=== PATIENT | female | born 1970 | race African-American/Black ===

== ENCOUNTER 2022-06-07 05:39 | Emergency (ER) | payer BC, SELFPAY ==
--- NOTE | ~2022-06-07 | CT_ITS ---
EXAMINATION: CT facial bones w con DATE: 06/07/2022 07:01 INDICATION: Right-sided facial swelling TECHNIQUE: High resolution computed tomography (CT) of the maxillofacial bones was performed without intravenous contrast. Additional sagittal and coronal reconstructions were performed. Automated expos ure control and iterative reconstruction technique were employed. The dose-length product was 413.77 mGy-cm. COMPARISON: None FINDINGS: Soft tissue swelling and edema surrounding a region of phlegmonous change along the upper lip and ext ending to the right side of the nasal labial fold. No drainable abscess. No maxillofacial fractures. Orbits are normal. Mild mucosal thickening in the right sphenoid and bilateral ethmoid and maxillary sinuses. There are some bubbly mucus in the right sphenoid sinus consistent with acute sinusitis. [place] air cells and middle ear cavities are clear. The mildly prominent but still normal-sized bilater al facial and cervical lymph nodes which are likely reactive. IMPRESSION: 1. Soft tissue swelling surrounding a region of phlegmonous change without discrete abscess centered at the upper lip and right sides of the nasal labial fold. 2. Bubbly mucus in the right sphenoid sinus consistent with acute sinusitis. Reviewed, dictated and finalized at location A. IMPRESSION: 1. Soft tissue swelling surrounding a region of phlegmonous change without disc rete abscess centered at the upper lip and right sides of the nasal labial fold . 2. Bubbly mucus in the right sphenoid sinus consistent with acute sinusitis.
[2022-06-07 05:51] VITALS: BP 183/110; PULSE 100; RESP 20; TEMP 36.6; O2SAT 96
--- NOTE | 2022-06-07 05:56 | ED.GENADULT ---
HPI - General Adult General Chief complaint: Dental/Oral <Rusty Wood MD - Last Filed: 06/13/22 07:05> Stated complaint: dental pain <Rusty Wood MD - Last Filed: 06/13/22 07:05> Time Seen by Provider: 06/07/22 05:41 <Rusty Wood MD - Last Filed: 06/13/22 07:05> History of Present Illness HPI narrative: 52-year-old female presented to the emergency department for evaluation of right-sided facial swelling. Patient states that on 06/05 she had some teeth filled. Patient states last night that she did have some minor swelling but that when she woke up this morning she had more significant swelling. Patient no swelling of right face. Patient denies any change in her voice any swelling of her tongue. Patient has not been antibiotics but has been taking prednisone. <Rusty Wood MD - Last Filed: 06/13/22 07:05> Related Data Allergies/adverse reactions: Allergies Allergy/AdvReac Type Severity Reaction Status Date / Time No Known Allergies Allergy Verified 06/07/22 05:50 <Rusty Wood MD - Last Filed: 06/13/22 07:05> Review of Systems Review of Systems: CONSTITUTIONAL: Denies fever, chills, or sweats. EYES: Denies visual changes, redness, or discharge. ENT: Denies rhinorrhea, congestion, sore throat, or otalgia. Right-sided facial swelling CARDIOVASCULAR: Denies chest pain, palpitations, or edema. RESPIRATORY: Denies cough or dyspnea. GASTROINTESTINAL: Denies abdominal pain, nausea, vomiting, or diarrhea. GENITOURINARY: Denies dysuria or hematuria. SKIN: Denies rash or itching. MUSCULOSKELETAL: Denies back pain, joint pain, or myalgia. NEUROLOGIC: Denies headache, numbness, or weakness. <Rusty Wood MD - Last Filed: 06/13/22 07:05> Exam Narrative: APPEARANCE: Well appearing, no pain, no distress, well-nourished. HEAD: normocephalic, atraumatic. Facial: Right-sided facial swelling involving lip. No submandibular swelling. No swelling of tongue EYES: PERRLA/EOMI, conjunctivae clear. NOSE: Normal no drainage EARS:TMS clear with good light reflex. THROAT: Pharynx clear, no exudate. NECK: Supple. No adenopathy, no masses. RESPIRATORY: Airway patent, respirations nonlabored. Clear to auscultation bilaterally, no rales, rhonchi, wheezing. CARDIOVASCULAR: Regular rate and rhythm without murmurs rubs or gallops. ABDOMINAL: Soft, nontender, nondistended, normal bowel sounds MUSCULOSKELETAL: Moves all extremities. Strength/ROM intact, No edema, No calf tenderness. NEURO: Alert. Cranial nerves II through XII intact. Grossly intact SKIN: Warm, dry. Normal Color <Rusty Wood MD - Last Filed: 06/13/22 07:05> Course Course Emergency Course: CT facial bones with contrast was ordered to evaluate for abscess. Patient was treated with IV clindamycin. Patient care was signed to Dr. Kate <Rusty Wood MD - Last Filed: 06/13/22 07:05> Vital Signs Vital signs: Vital Signs Temperature 97.9 F 06/07/22 05:51 Pulse Rate 100 06/07/22 05:51 Respiratory Rate 20 06/07/22 05:51 Blood Pressure 183/110 H 06/07/22 05:51 Pulse Oximetry 96 06/07/22 05:51 Temperature 97.9 F 06/07/22 05:51 Pulse Rate 84 06/07/22 11:00 Respiratory Rate 20 06/07/22 11:00 Blood Pressure 103/88 06/07/22 11:00 Pulse Oximetry 100 06/07/22 11:00 <Rusty Wood MD - Last Filed: 06/13/22 07:05> Vital Signs Temperature 97.9 F 06/07/22 05:51 Pulse Rate 100 06/07/22 05:51 Respiratory Rate 20 06/07/22 05:51 Blood Pressure 183/110 H 06/07/22 05:51 Pulse Oximetry 96 06/07/22 05:51 Temperature 97.9 F 06/07/22 05:51 Pulse Rate 84 06/07/22 11:00 Respiratory Rate 20 06/07/22 11:00 Blood Pressure 103/88 06/07/22 11:00 Pulse Oximetry 100 06/07/22 11:00 <Nicolas Kate DO - Last Filed: 06/07/22 12:32> Medical Decision Making MDM Narrative Medical decision making narrative: IMPRESSION:
[2022-06-07] MEDS: CLINDAMYCIN 900 MG/D5W 50 ML 900 MG/50 ML PIGGYBACK 50 MG IVPB (06:14)
[2022-06-07 06:18] LABS: Basophils Percent Auto 0.1 % (0.2-1.2); Eosinophils Percent Auto 0.1 % (0-4.4); Hematocrit 36.2 % (37.0-47.0); Hemoglobin 11.3 g/dL (12.0-15.0); Immature Granulocyte Absolute 0.04 K/mm3 (0.00-0.031); Immature Granulocyte Percent A 0.4 % (0-0.5); Lymphocytes Absolute Auto 2.44 K/mm3 (0.9-3.2); Lymphocytes Percent Auto 25.8 % (18.3-44.2); Mean Corpuscular HGB Conc 31.2 g/dl (32-36); Mean Corpuscular Volume 86.6 fl (80-100); Mean Platelet Volume 10.3 fl (7.4-10.4); Monocytes Absolute Auto 0.8 K/mm3 (0.1-0.6); Monocytes Percent Auto 8.5 % (2.6-8.5); Neutrophils Absolute Auto 6.2 K/mm3 (1.3-6.7); Neutrophils Percent Auto 65.1 % (45.5-73.1); Platelet Count Result 230 k/mm3 (150-375); Red Blood Count 4.18 M/mm3 (4.2-5.4); Red Cell Distribution Width 13.3 % (11.5-14.5); White Blood Count 9.5 K/mm3 (4.5-10.0)
[2022-06-07 06:26] VITALS: BP 164/95; PULSE 88; RESP 20; O2SAT 100
[2022-06-07 06:34] LABS: Alanine Aminotransferase 17 U/L (6-35); Albumin Level 4.2 g/dL (3.5-5.1); Alkaline Phosphatase 81 U/L (38-126); Anion Gap 7 mmol/L (8-16); Aspartate Amino Transferase 25 U/L (14-36); Bilirubin,Total 0.6 mg/dL (0.2-1.3); Blood Urea Nitrogen 17 mg/dL (7-17); Carbon Dioxide 29 mmol/L (22-30); Chloride 105 mmol/L (98-107); Estimated CRCL calculation 106 ml/min; Estimated Glomerular Filt Rate > 60; Glucose 114 mg/dL (65-110); Potassium 3.8 mmol/L (3.4-5.0); Sodium 141 mmol/L (137-145)
--- NOTE | 2022-06-07 06:59 | PC.NURSE ---
Report given to Aleida SOTELO
[2022-06-07] MEDS: HYDROcodone/acetaminophen (*CRX) 5-325 MG TABLET 1 TAB PO (08:26)
[2022-06-07 08:30] VITALS: BP 165/96; PULSE 100; RESP 20; O2SAT 100
[2022-06-07] MEDS: DEXAMETHASONE SOD PHOS INJ 4 MG/ML VIAL 12 MG IV PUSH (08:53)
[2022-06-07 11:00] VITALS: BP 103/88; PULSE 84; RESP 20; O2SAT 100
== END 2022-06-07 12:54 | disposition home or self-care (01) ==
PROVIDERS: Emergency Medicine; Emergency Provider Emergency Medicine
DX: R22.0 Localized swelling, mass and lump, head (principal); Z98.811 Dental restoration status
CPT/HCPCS: 36415; 70487; 80053; 85025; 96365; 96375; 99284; A9270; J1100; Q9967

== ENCOUNTER 2025-01-08 22:55 | Emergency (ER) | payer BC, SELFPAY ==
[2025-01-08] VITALS (8 sets, daily range): BP systolic 153–160; BP diastolic 88–102; PULSE 91–95; RESP 12–16; TEMP 36.9; O2SAT 100
--- NOTE | ~2025-01-08 | CT_ITS ---
EXAMINATION: CT abdomen pelvis wo con DATE: 01/09/2025 03:04 INDICATION: Right flank pain TECHNIQUE: Computed tomography (CT) of the abdomen and pelvis was performed without intravenous contr ast. The dose-length product was 1571.76 mGy-cm. Automated exposure control and iterative reconstruct ion technique were employed. COMPARISON: None. FINDINGS: Lung bases are unremarkable. Heart size is normal. No significant pleural or pericardial ef fusion. The liver, spleen, pancreas, adrenal glands and kidneys are unremarkable. Gallbladder is pres ent. No significant vascular abnormality. No lymphadenopathy. No hydronephrosis. No renal/ureteral st ones identified. Nonobstructive bowel gas pattern. Normal appendix. No free air or free fluid. No acu te osseous abnormality. No lymphadenopathy. IMPRESSION: 1. No acute abdominal abnormality. Reviewed, dictated and finalized at location A.
--- OUTSIDE RECORDS SUMMARY | 2025-01-08 22:57 | XMS_ITS | Clinical Summary ---
Author Organization [facility] Address [address] [place] [id number] Care Team Providers Care Weight Caller Name Role Phone Ashley Clayton NP Primary Care Provider [phone] Allergies No known active allergies Medications promethazine-DM (PROMETHAZINE-D M) 1.25-3 mg/mL syrupIndication s:Viral respiratory infection Take 5 mL by mouth 4 (four) times a day as needed for cough (And runny nose) Collaborating physician Abdelrahman Barber MD 118 mL 4 Active acetaminophen (TYLENOL) 325 mg tabletIndicatio ns:Viral respiratory infection,Tonsi llitis Take 2 tablets (650 mg total) by mouth every 6 (six) hours as needed for pain or fever Collaborating physician Abdelrahman Barber MD 30 tablet 4 Active ibuprofen (ADVIL,MOTRIN) 600 mg tabletIndicatio ns:Viral respiratory infection,Tonsi llitis Take 1 tablet (600 mg total) by mouth every 8 (eight) hours as needed for pain Collaborating physician Abdelrahman Barber MD 20 tablet 4 Active Active Problems Problem Noted Date Diagnosed Date Viral respiratory infection 06/08/2024 Tonsillitis 06/08/2024 Social History Tobacco Use Types Packs/Day Years Used Date Smoking Tobacco: Never Tobacco Cessation:Counseling Given: Not Answered Personal Safety Answer Date Recorded Have you ever been in or are you currently in a harmful physical or emotional relationship or is someone making you feel afraid or unsafe? 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 Gender Identity Not on file Sexual Orientation Not on file Obstetrics History Last Filed Vital Signs Vital Sign Reading Time Taken Comments Blood Pressure 169/95 06/08/2024 9:37 PM CDT Pulse 85 06/08/2024 9:37 PM CDT Temperature 36.7 C (98.1 F) 06/08/2024 7:44 PM CDT Respiratory Rate 20 06/08/2024 9:37 PM CDT Oxygen Saturation 100% 06/08/2024 7:44 PM CDT Inhaled Oxygen Concentration - - Weight 99.8 kg (220 lb) 06/08/2024 7:44 PM CDT Height 167.6 cm (5' 6 ) 06/08/2024 7:44 PM CDT Body Mass Index 35.51 06/08/2024 7:44 PM CDT Plan of Treatment Health Maintenance Due Date Last Done Comments Breast Cancer Screening-Mammogram 1972 Cervical Cancer Screening 1972 Colon Cancer Screening-Colonoscopy 1972 Depression Screening 1972 Hepatitis C Screening 1972 Hepatitis B Screening 01/06/1990 Regular Well Visit/Exam 18-64 01/06/1990 Zoster Vaccine (1 of 2) 01/06/2022 Covid-19 Vaccine (4 - 2023-2 5 season) 2024 09/03/2021, 10/31/2020, 10/10/2020 Influenza Vaccine (#1) 2024 DTaP/Tdap/Td Vaccine (3 - Td or Tdap) 03/26/2026 03/26/2016, 03/26/2016 Pneumococcal vaccine <65 Aged Out 11/11/2022 No longer eligible based on patient's age to complete this topic Insurance [employer] [place] [address] [facility] Care Teams Weight Caller Relationship Specialty Start Date End Date Ashley Clayton NP [address] [place] [address] PCP - General 03/08/20
--- OUTSIDE RECORDS SUMMARY | 2025-01-08 22:57 | XMS_ITS | Referral Summary ---
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
--- OUTSIDE RECORDS SUMMARY | 2025-01-08 22:58 | XMS_ITS | Encounter Summary ---
Author Organization [facility] Address [address] [place] [address] Care Team Providers Care Remarketing Manager Name Role Phone Unavailable Primary Care Provider Unavailabl e Prior Encounters Date Type Department Care Team Description 09/20/2019 Converted CPS Chart Documents [facility] [address] [place] [address] <No scans attached> 09/20/2019 Converted 13x Documents [facility] [address] [place] [address] <No scans attached> Plan of Treatment Not on file Procedures Procedure Name Priority Date/Time Associated Diagnosis Comments LR PERIODONTAL SCALING AND ROOT PLANING - FOUR OR MORE TEETH PER QUADRANT Routine 06/14/2020 2:00 AM CDT ORAL HYGIENE INSTRUCTIONS Routine 2019 2:00 AM CDT LR SHANEKA DECON/QD Routine 06/14/2020 2:00 AM CDT LR ANTIBACT IRR/QUAD Routine 06/14/2020 2:00 AM CDT TOPICAL APPLICATION OF FLUORIDE VARNISH Routine 06/14/2020 2:00 AM CDT UL PERIODONTAL SCALING AND ROOT PLANING - FOUR OR MORE TEETH PER QUADRANT Routine 06/07/2020 2:00 AM CDT LL PERIODONTAL SCALING AND ROOT PLANING - FOUR OR MORE TEETH PER QUADRANT Routine 06/07/2020 2:00 AM CDT ORAL HYGIENE INSTRUCTIONS Routine 2019 2:00 AM CDT LL SHANEKA DECON/QD Routine 06/07/2020 2:00 AM CDT UL SHANEKA DECON/QD Routine 06/07/2020 2:00 AM CDT ORAL-B ESSENTIAL KIT Routine 06/07/2020 2:00 AM CDT UL ANTIBACT IRR/QUAD Routine 06/07/2020 2:00 AM CDT LL ANTIBACT IRR/QUAD Routine 06/07/2020 2:00 AM CDT UR PERIODONTAL SCALING AND ROOT PLANING - FOUR OR MORE TEETH PER QUADRANT Routine 06/05/2020 2:00 AM CDT ORAL HYGIENE INSTRUCTIONS Routine 2019 2:00 AM CDT UR SHANEKA DECON/QD Routine 06/05/2020 2:00 AM CDT UR ANTIBACT IRR/QUAD Routine 06/05/2020 2:00 AM CDT 30 O AMALGAM 1 SURFACE Routine 0 2:00 AM CDT 29 O AMALGAM 1 SURFACE Routine 0 2:00 AM CDT 19 O AMALGAM 1 SURFACE Routine 0 2:00 AM CDT 3 O AMALGAM 1 SURFACE Routine 05/24/2020 2:00 AM CDT COMPREHENSIVE ORAL EVALUATION - NEW OR ESTABLISHED PATIENT Routine 05/24/2020 2:00 AM CDT INTRAORAL - COMPREHENSIVE SERIES OF RADIOGRAPHIC IMAGES Routine 05/24/2020 2:00 AM CDT INTRAORAL PHOTO Routine 05/24/2020 2:00 AM CDT INTRAORAL PHOTO Routine 05/24/2020 2:00 AM CDT INTRAORAL PHOTO Routine 05/24/2020 2:00 AM CDT INTRAORAL PHOTO Routine 05/24/2020 2:00 AM CDT 31 EXTRACTION, ERUPTED TOOTH OR EXPOSED ROOT (ELEVATION AND/OR FORCEPS REMOVAL) Routine 05/10/2020 2:00 AM CDT 31 LIMITED ORAL EVALUATION - PROBLEM FOCUSED Routine 05/03/2020 2:00 AM CDT PANORAMIC RADIOGRAPHIC IMAGE Routine 05/03/2020 2:00 AM CDT SINGLE X-RAY Routine 05/03/2020 2:00 AM CDT Visit Diagnoses Not on file
--- OUTSIDE RECORDS SUMMARY | 2025-01-08 22:58 | XMS_ITS | Clinical Summary ---
Author Organization [facility] [place] [address] [place] [address] Care Team Providers Care Tnt Powder Worker Name Role Phone Unavailable Primary Care Provider Unavailabl e Social History Tobacco Use Types Packs/Day Years Used Date Smoking Tobacco: Never Assessed Comments Unknown Sex and Gender Information Value Date Recorded Sex Assigned at Not on file Legal Sex Female 9:07 PM PDT Gender Identity Not on file Sexual Orientation Not on file Plan of Treatment Health Maintenance Due Date Last Done Comments Meningococcal B Vaccine Aged Out No l onger eligible based on patient's age to complete this topic
--- OUTSIDE RECORDS SUMMARY | 2025-01-08 22:58 | XMS_ITS | CONTINUITY OF CARE DOCUMENT ---
Author Name leah lynn Address Unknown Organization [facility] Address [address] [place] [address] Phone [phone] Care Team Providers Care Design Maker Name Role Phone Andrae Pope MD Unavailable Andrae Pope MD Unavailable INSURANCE PROVIDERS Payer name Policy type / Coverage type [employer] party ID [id number]
--- OUTSIDE RECORDS SUMMARY | 2025-01-08 22:58 | XMS_ITS | Data Portability ---
Author Organization BRADY Billie PINTO Address [address] [place] [address] Care Team Providers Care Operating Room Surgical Technologist Name Role Phone STEPHON VALDIVIA Primary Care Provider Assessment Encounter Date Assessment Date Assessment LastModified by Organization Details LastModified Time 01/14/2024 01/14/2024 Pt presents as returning pt. Routine exam, screenings and education completed: tmond Not available 01/14/2024 17:17:49 01/28/2024 01/28/2024 Office visit for for advised brief f/u in the management of: HTN tmond Not available 01/28/2024 13:50:40 06/14/2024 06/14/2024 Pt presents as returning pt. Routine exam, screenings and education completed: [email or web address] Not available 06/14/2024 14:46:04 Plan of Treatment Reminders Order Date Submit Date Provider Last Modified By Organization Details Last Modified Time Details Appointments None recorded. Lab PPD (purified protein derivative ), skin test 2023 024 LINDA In-Office Order, Internal Use Only DO Not Attach Compendium DO Not Attach Compendium, Do Not Delete/merge, [id number] 13:25:59 HbA1c (hemoglobi n A1c), blood 2023 024 LINDA [facility], [facility] [address], [address], [place], [address], 4 11:12:47 lipid panel, serum 2023 024 LINDA [facility], [facility], [address], [place], [address], 4 11:12:44 vitamin D, 25-hydroxy , total, serum 2023 024 LINDA [facility], [address] [facility], [address], [place], [address], 4 11:12:49 microalbum in/creatin ine, mass ratio, urine 2023 024 [facility], [address] [facility], [address], [place], [address], 4 16:10:05 BMP, serum or plasma 2023 024 [facility], [address] [place], [place] [address] Cale, [address], [place], [address], 4 11:12:45 CBC 2023 024 [facility], [address] [facility], [address], [place], [address], 4 11:12:48 noninvasiv e colorectal cancer DNA + occult blood screening, QL, stool 2023 024 [facility] (Cologuard Orders Only), [address], [address], [place], [address], 4 08:31:14 Referral None recorded. Procedures colonoscop y procedure (PROC) 2022 023 puja Christy [facility] (Surgery Sched), [address] [place], [address], 3 09:38:41 Surgeries None recorded. Imaging MAMMO, screening, digital, bilateral 2023 024 [email or web address] [facility] (Rad), [address] [place], [address], 4 17:07:21 MAMMO, screening, digital, bilateral 2023 geo [facility] Patient Access Centralized Scheduling, Centralized Scheduling, [address] [facility], [place], [address], 4 09:41:33 Medication Orders Vitamin D3 50 mcg (2,000 unit) capsule 2023 024 [facility], [address] [place], [address], 4 15:08:26 lisinopril 20 mg-hydroch lorothiazi de 25 mg tablet 2023 [facility], [address] [place], [address], 4 15:07:30 aspirin 81 mg tablet,del ayed release 2023 024 [facility], [facility] [place], [address], 4 15:07:32 Tubersol 5 tub. unit/0.1 mL intraderma l injection solution 2023 geo Not available 4 12:14:56 silver sulfadiazi ne 1 % topical cream 2023 [facility], [address] [place], [address], 4 14:47:18 lisinopril 20 mg-hydroch lorothiazi de 25 mg tablet 2023 [facility], [address] [place], [address], 4 16:21:27 aspirin 81 mg tablet,del ayed release 2023 024 [facility], [address] [place], [address], 4 16:21:25 Miralax 17 gram/dose oral powder 2022 024 [facility], [address] [place], [address], 4 15:15:55 Dulcolax (bisacodyl ) 5 mg tablet,del ayed release 2022 024 [facility], [address] [place], [address], 4 15:15:48 Patient TargetsNo targets recorded. Patient Instructions Encounter Date Encounter Id Patient Instructions Last Modified By Organization Details Last Modified Time 01/14/2024 [id number] prediabetes: car e instructions tmond Not available 01/14/2024 17:18:01 henriquez: care instructions tmond Not available 01/14/2024 17:18:01 body mass index: care instructions tmond Not available 01/14/2024 17:18:01 A healthy lifestyle: care instructions tmond Not available 01/14/2024 17:18:01 -Always present to ER or Urgent Care with any progression of/alarming symptoms, significant changes in symptoms that are concerning or urgent matters -Pt to avoid a diet high in NA+ as well as no addeded NA+ -Pt to check b/p daily in am and in evening -Patient instructed to call office with changes in condition -Pt advised to continue to check FBG daily as well as post prandial 1-2 hrs after dinner meal, record and bring to f/u visits -Pt educated re heart health TLCs: Eat a variety of foods every day. Good choices include fruits, vegetables, whole grains (like oatmeal), dried beans and peas, nuts and seeds, soy products (like tofu), and fat-free or low-fat dairy products. Replace butter, margarine, and hydrogenated or partially hydrogenated oils with olive and canola oils. (Canola oil margarine without trans fat is fine.) Replace red meat with fish, poultry, and soy protein (like tofu). Limit processed and packaged foods like chips, crackers, and cookies. Bake, broil, or steam foods. Don't wen them. Be physically active. Get at least 30 minutes of exercise on most days of the week. tmond Not available 01/14/2024 16:24:16 -Discussed POC; further managed r/t pending lab values -Pt to follow up with routine f/u visit as discussed -Pt informed of optimum health recommendations: 150 mins of aerobic exercise weekly 7-9 hrs of sleep 7-13 servings of fruit and vegetables each day 1/2 of body weight in oz of water daily Plant based diet tmond Not available 01/14/2024 16:24:33 01/21/2024 [id number] MMR vaccine (measles, mumps, and rubella): what you need to know leif Not available 01/21/2024 18:03:45 MMR vaccine: car e instructions [email or web address] Not available 01/21/2024 18:03:45 A healthy lifestyle: care instructions [email or web address] Not available 01/21/2024 18:02:26 01/28/2024 [id number] -Always present to ER or Urgent Care with any progression of/alarming symptoms, significant changes in symptoms that are concerning or urgent matters -Pt to avoid a diet high in NA+ as well as no addeded NA+ -Pt to check b/p daily in am and in evening, record values and bring readings to f/u appt tmond Not available 01/28/2024 13:51:39 -Discussed POC -Pt to follow up with routine f/u visit as discussed tmond Not available 01/28/2024 13:51:44 06/14/2024 [id number] body mass index: care instructions tmond Not available 06/14/2024 15:07:02 A healthy lifestyle: care instructions tmond Not available 06/14/2024 15:07:02 preventing osteoporosis: care instructions tmond Not available 06/14/2024 15:45:27 -Always present to ER or Urgent Care with any progression of/alarming symptoms, significant changes in symptoms that are concerning or urgent matters -Pt to avoid a diet high in NA+ as well as no addeded NA+ -Pt to check b/p daily in am and in evening -Patient instructed to call office with changes in condition -Pt advised to continue to check FBG daily as well as post prandial 1-2 hrs after dinner meal, record and bring to f/u visits -Pt educated re heart health TLCs: Eat a variety of foods every day. Good choices include fruits, vegetables, whole grains (like oatmeal), dried beans and peas, nuts and seeds, soy products (like tofu), and fat-free or low-fat dairy products. Replace butter, margarine, and hydrogenated or partially hydrogenated oils with olive and canola oils. (Canola oil margarine without trans fat is fine.) Replace red meat with fish, poultry, and soy protein (like tofu). Limit processed and packaged foods like chips, crackers, and cookies. Bake, broil, or steam foods. Don't wen them. Be physically active. Get at least 30 minutes of exercise on most days of the week. tmond Not available 06/14/2024 15:00:39 -Discussed POC; further managed r/t pending lab values -Pt to follow up with routine f/u visit as discussed -Pt informed of optimum health recommendations: 150 mins of aerobic exercise weekly 7-9 hrs of sleep 7-13 servings of fruit and vegetables each day 1/2 of body weight in oz of water daily Plant based diet tmond Not available 06/14/2024 15:00:42 Reason for Referral None Reported. Results Created Date Observation Date Name Description Value Unit Range Abnormal Flag Note LastModifiedBy Organization Detail LastModifiedTime 06/16/20 24 06/16/2024 COLOG UARD cologuard result Cancel led - Duplic ate Order not applic able Not Available [facility] (Cologuard Orders Only) [address], [place], [address], 06/16/2024 08:31:14 03/20/20 23 03/20/2023 HbA1c (hemo globi n A1c), blood HbA1c 5.9 Not Available In-Office Order Internal Use Only DO Not Attach Compendium DO Not Attach Compendium, Do Not Delete/merge, [id number] 03/20/2023 13:34:27 03/20/20 23 03/20/2023 gluco se, finge rstic k, blood Blood Glucose: mg/dl 91 Not Available In-Off ice Order Internal Use Only DO Not Attach Compendium DO Not Attach Compendium, Do Not Delete/merge, [id number] 03/20/2023 13:34:40 01/14/20 24 01/15/2024 LIPID PANEL cholesterol, total 201 mg/dL 100-19 9 above high normal Not Available [facility] ([facility]) [address] [place], [address], 01/15/2024 11:12:44 01/14/20 24 01/15/2024 LIPID PANEL triglyceride s 117 mg/dL 0-149 Not Available [facility] ([facility]) [address] [place], [address], 01/15/2024 11:12:44 01/14/20 24 01/15/2024 LIPID PANEL HDL cholesterol 58 mg/dL >39 Not Available [facility] ([facility]) [address] [place], [address], 01/15/2024 11:12:44 01/14/20 24 01/15/2024 LIPID PANEL VLDL cholesterol iva 21 mg/dL 5-40 Not Available [facility] ([facility]) [address] [place], [address], 01/15/2024 11:12:44 01/14/20 24 01/15/2024 LIPID PANEL LDL chol calc ([facility]) 122 mg/dL 0-99 above high normal Not Available [facility] ([facility]) [address] [place], [address], 01/15/2024 11:12:44 01/14/20 24 01/15/2024 BASIC METAB OLIC PANEL (8) glucose 106 mg/dL 70-99 above high normal Not Available [facility] ([facility]) [address] [place], [address], 01/15/2024 11:12:45 01/14/20 24 01/15/2024 BASIC METAB OLIC PANEL (8) BUN 12 mg/dL 6-24 Not Available [facility] ([facility]) [address], [place], [address], 01/15/2024 11:12:45 01/14/20 24 01/15/2024 BASIC METAB OLIC PANEL (8) creatinine 0.70 mg/dL 0.57-1 .00 Not Available [facility] ([facility]) [address] [place], [address], 01/15/2024 11:12:45 01/14/20 24 01/15/2024 BASIC METAB OLIC PANEL (8) eGFR 104 mL/mi n/1.7 3 >59 Not Available [facility] ([facility]) [address] [facility], [place], [address], 01/15/2024 11:12:45 01/14/20 24 01/15/2024 BASIC METAB OLIC PANEL (8) BUN/creatini ne ratio 17 9-23 Not Available [facility] ([facility]) [address] [facility], [place], [address], 01/15/2024 11:12:45 01/14/20 24 01/15/2024 BASIC METAB OLIC PANEL (8) sodium 145 mmol/ L 134-14 4 above high normal Not Available [facility] ([facility]) [address] [facility] [place], [address], 01/15/2024 11:12:45 01/14/20 24 01/15/2024 BASIC METAB OLIC PANEL (8) potassium 4.2 mmol/ L 3.5-5. 2 Not Available [facility] ([facility]) [address] [facility], [place], [address], 01/15/2024 11:12:45 01/14/20 24 01/15/2024 BASIC METAB OLIC PANEL (8) chloride 108 mmol/ L 96-106 above high normal Not Available [facility] ([facility]) [address] [place], [address], 01/15/2024 11:12:45 01/14/20 24 01/15/2024 BASIC METAB OLIC PANEL (8) carbon dioxide, total 25 mmol/ L 20-29 Not Available [facility] ([facility]) [address] [place], [address], 01/15/2024 11:12:45 01/14/20 24 01/15/2024 BASIC METAB OLIC PANEL (8) calcium 9.5 mg/dL 8.7-10 .2 Not Available [facility] ([facility]) [address] [place], [address], 01/15/2024 11:12:45 01/14/20 24 01/14/2024 UNABL E TO VOID unable to void Commen t Patie nt unabl e to void. Urine to be colle cted at a later date. Not Available [facility] ([facility]) [address] [facility], [place], [address], 01/15/2024 11:12:46 01/14/20 24 01/15/2024 HEMOG LOBIN A1C hemoglobin A1C 6.0 % 4.8-5. 6 above high normal Predi abete s: 5.7 - 6.4 Diabe sofya: >6.4 Glyce romi contr ol for adult s with diabe sofya: <7.0 Not Available [facility] ([facility]) [address] [place], [address], 01/15/2024 11:12:47 01/14/20 24 01/15/2024 CBC, PLATE LET, NO DIFFE RENTI AL WBC 4.2 x10e3 /uL 3.4-10 .8 Not Available [facility] ([facility]) [address] [place], [address], 01/15/2024 11:12:48 01/14/20 24 01/15/2024 CBC, PLATE LET, NO DIFFE RENTI AL RBC 4.30 x10e6 /uL 3.77-5 .28 Not Available [facility] ([facility]) [address] [facility], [place], [address], 01/15/2024 11:12:48 01/14/20 24 01/15/2024 CBC, PLATE LET, NO DIFFE RENTI AL hemoglobin 11.6 g/dL 11.1-1 5.9 Not Available [facility] ([facility]) [address] [place], [address], 01/15/2024 11:12:48 01/14/20 24 01/15/2024 CBC, PLATE LET, NO DIFFE RENTI AL hematocrit 36.0 % 34.0-4 6.6 Not Available [facility] ([facility]) [address] [place], [address], 01/15/2024 11:12:48 01/14/20 24 01/15/2024 CBC, PLATE LET, NO DIFFE RENTI AL MCV 84 fL 79-97 Not Available [facility] ([facility]) [address] [place], [address], 01/15/2024 11:12:48 01/14/20 24 01/15/2024 CBC, PLATE LET, NO DIFFE RENTI AL MCH 27.0 pg 26.6-3 3.0 Not Available [facility] ([facility]) [address] [place], [address], 01/15/2024 11:12:48 01/14/20 24 01/15/2024 CBC, PLATE LET, NO DIFFE RENTI AL MCHC 32.2 g/dL 31.5-3 5.7 Not Available [facility] ([facility]) [address] [place], [address], 01/15/2024 11:12:48 01/14/20 24 01/15/2024 CBC, PLATE LET, NO DIFFE RENTI AL RDW 13.3 % 11.7-1 5.4 Not Available [facility] ([facility]) [address] [facility], [place], [address], 01/15/2024 11:12:48 01/14/20 24 01/15/2024 CBC, PLATE LET, NO DIFFE RENTI AL platelets 246 x10e3 /uL 150-45 0 Not Available [facility] ([facility]) [address] [facility], [place], [address], 01/15/2024 11:12:48 01/14/20 24 01/15/2024 VITAM IN D, 25-HY DROXY vitamin D, 25-hydroxy 9.3 NG/mL 30.0-1 00.0 below low normal Vitam in D defic iency has been defin ed by the Insti tute of Medic ine and an Endoc rine Socie ty pract ice guide line as a level of serum 25-OH vitam in D less than 20 ng/mL (1,2) . The Endoc rine Socie ty went on to furth er defin e vitam in D insuf ficie ncy as a level betwe en 21 and 29 ng/mL (2). 1. IOM (Inst itute of Medic ine). 2009. Dieta ry refer ence tova es for calci um and D. Jose David christiansen [place]: [facility] Press . 2. Joe holt [place], Megan ey [place], Natacha off-F errar i SUMMERS, et al. Evalu ation , treat ment, and preve ntion of vitam in D defic iency : an Endoc rine Socie ty clini iva pract ice guide line. JCEM. 2010; 96(7) :1911 -30. Not Available [facility] ([facility]) [address] [facility], [place], [address], 01/15/2024 11:12:49 01/24/20 24 01/24/2024 PPD (adalberto fied prote in deriv ative ), skin test Result Negati ve Not Available In-Office Order Internal Use Only DO Not Attach Compendium DO Not Attach Compendium, Do Not Delete/merge, [id number] 01/21/2024 17:59:24 04/01/20 23 03/27/2023 XR, ankle EXAMIN ATION: BILATE RAL FOOT AND ANKLE ACCESS ION: [id number] 2, [id number] 1 EXAM DATE: 023 3:09 PM REASON FOR EXAM: [id number] 07: Foot pain Ankle pain and swelli ng and foot pain and swelli ng COMPAR MONIK: None TECHNI QUE: 3 views right foot and 3 views left foot, 3 views right ankle and 3 views left ankle FINDIN GS: Right ankle: Severe soft tissue swelli ng. Hypert rophic bone sugges tive old healed injuri es of the medial and latera l malleo li. 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 No osteoc hondra l lesion of the talus. No acute fractu re. Left ankle: Severe soft tissue swelli ng. Mild valgus deform ity. No acute fractu re or disloc ation. 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 Right foot: Fractu re or disloc ation. Joints well aligne d with mainta ined. Left foot: Early osteoa rthrit is first MTP. No acute fractu re or disloc ation. IMPRES PAOLO: 1. Severe bilate ral soft tissue swelli ng. No acute fractu re or disloc ation. 2. Findin gs concer frances for chroni c planta r fascii tis bilate rally. 3. Valgus deform ity of the left ankle. 4. Findin gs concer frances for old healed injuri es of the medial and latera l malleo donovan on the right. Electr onical ly Signed By: Sudhakar Henderson MD on 3:52 PM READ BY: ANGEL BOWEN, SUDHAKAR Date: 2022 15:52 [facility] ([facility]) [address] [place], [address], 01/14/2024 16:17:08 04/01/20 23 03/27/2023 XR, foot EXAMIN ATION: BILATE RAL FOOT AND ANKLE ACCESS ION: [id number] 2, [id number] 1 EXAM DATE: 023 3:09 PM REASON FOR EXAM: [id number] 07: Foot pain Ankle pain and swelli ng and foot pain and swelli ng COMPAR MONIK: None TECHNI QUE: 3 views right foot and 3 views left foot, 3 views right ankle and 3 views left ankle FINDIN GS: Right ankle: Severe soft tissue swelli ng. Hypert rophic bone sugges tive old healed injuri es of the medial and latera l malleo li. 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 No osteoc hondra l lesion of the talus. No acute fractu re. Left ankle: Severe soft tissue swelli ng. Mild valgus deform ity. No acute fractu re or disloc ation. 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 Right foot: Fractu re or disloc ation. Joints well aligne d with mainta ined. Left foot: Early osteoa rthrit is first MTP. No acute fractu re or disloc ation. IMPRES PAOLO: 1. Severe bilate ral soft tissue swelli ng. No acute fractu re or disloc ation. 2. Findin gs concer frances for chroni c planta r fascii tis bilate rally. 3. Valgus deform ity of the left ankle. 4. Findin gs concer frances for old healed injuri es of the medial and latera l malleo donovan on the right. Electr onical ly Signed By: Sudhakar Henderson MD on 023 3:52 PM READ BY: ANGEL BOWEN, SUDHAKAR Date: 2022 15:52 [facility] ([facility]) [address] [place], [address], 01/14/2024 16:17:08 Result Notes None recorded. Problems Name Problem SNOMED Code Status Onset Date Resolution Date Notes Provider Name and Address Organization Details Recorded Time Herpes simplex type 2 infection 844237222 Active 2019 MIGUEL MERCADOC Attn: Marvel ray,[address] [facility], [place], [address], [place] - [facility] 3 14:00:20 Body mass index 40+ - severely obese 623893692 Active 2022 MIGUEL MERCADOC Attn: Marvel ray,[address] [facility], [place], [address], [place] [facility] 3 14:00:31 Vitamin D deficiency 82159437 Active 2022 MIGUEL MERCADOC Attn: Marvel ray,[address] [place], [address], [facility] - [facility] 3 14:00:13 Diabetes resolved 178211308 Active 2022 MIGUEL MERCADOC Attn: Marvel ray,[address] [place], [address], [place] [facility] 3 14:00:28 Prediabetes 306330447 Active 2022 MIGUEL MERCADOC Attn: Marvel ray,[address] [place], [address], [place] [facility] 4 12:26:27 Influenza vaccination declined 876389060 Active 2023 MIGUEL MERCADOC Attn: Marvel ray,[address] [place], [address], [place] [facility] 4 14:59:32 Essential hypertension 47500756 Active 2016 CHITO MERCADO Attn: Marvel ray,[address] [place], [address], [place] [facility] 3 14:00:24 Problem Notes None recorded. Procedures Surgical History Date Name Laterality Status Provider Name and Address Organization Details Recorded Time 03/27/20 23 Routine Foot Care completed WILMAR OLMEDO DPM [address] [place], [address], [facility] 03/27/2023 16:42:37 11/21/19 21 Left Arthrocentesis Major Joint completed Syed Conley MD [address] [place], [address], [facility] 11/20/2020 17:19:40 11/10/19 21 Right Arthrocentesis Major Joint completed Syed Conley MD [address] [place], [address], [facility] 11/09/2020 10:49:56 Imaging Results Imaging Date Name Status LastModified by Organiz ation Details LastModified Time 03/27/2023 XR, ankle completed tmond [facility] (Rad) [address] [place], [address], 01/14/2024 16:17:08 03/27/2023 XR, foot completed tmond [facility] ([facility]) [address] [facility], [place], [address], 01/14/2024 16:17:08 Procedure Notes None recorded. Medical Equipment None Reported. Allergies No known drug allergies Medications Name Sig Start Date Stop Date Status Note LastModified by Organization Details LastModified Time losartan 50 mg tablet Take 1 tablet every day by oral route. 01/28 completed Not Available Not Available Not Available furosemide 40 mg tablet Take 1 tablet every day by oral route. 06/16 completed Not Available Not Available Not Available Miralax 17 gram/dose oral powder Take 240 g by oral route as directed. 01/13 completed Not Available Not Available Not Available fluconazole 100 mg tablet 12/26 completed Not Available Not Available Not Available promethazin e-DM 6.25 mg-15 mg/5 mL oral syrup 06/14 completed Not Available Not Available Not Available doxycycline hyclate 100 mg capsule 11/03 completed Not Available Not Available Not Available clindamycin HCl 300 mg capsule TAKE 1 CAPSULE BY MOUTH THREE TIMES DAILY FOR 10 DAYS 11/11 completed Not Available Not Available Not Available atorvastati n 10 mg tablet TAKE 1 TABLET BY MOUTH ONCE DAILY IN THE EVENING 03/20 completed Not Available Not Available Not Available azithromyci n 250 mg tablet 12/26 completed Not Available Not Available Not Available ibuprofen 800 mg tablet TAKE 1 TABLET BY MOUTH THREE TIMES DAILY 11/11 completed Not Available Not Available Not Available fluconazole 150 mg tablet 12/26 completed Not Available Not Available Not Available valacyclovi r 1 gram tablet Take 1 tablet every day by oral route with meals for 90 days. 11/11 completed Not Available Not Available Not Available hydrocodone 5 mg-acetamin ophen 325 mg tablet TAKE 1 TABLET BY MOUTH EVERY 6 HOURS 11/09 completed Not Available Not Available Not Available Celestone Soluspan 6 mg/mL suspension for injection Take 3 mL by injection route. 11/11 completed [facility] Not Available Not Available Not Available meloxicam 15 mg tablet TAKE 1 TABLET BY MOUTH ONCE DAILY 01/13 completed Not Available Not Available Not Available sucralfate 1 gram tablet 11/09 completed Not Available Not Available Not Available prednisone 20 mg tablet TAKE 2 TABLETS BY MOUTH EVERY DAY FOR 5 DAYS 11/11 completed Not Available Not Available Not Available Tubersol 5 tub. unit/0.1 mL intradermal injection solution Administe r .1ml interderm ally 01/27 completed Not Available Not Available Not Available fluoxetine 10 mg tablet 12/26 completed Not Available Not Available Not Available Flonase 50 mcg/actuati on nasal spray,suspe nsion Inhale 1 spray every day by intranasa l route for 30 days. 08/18 completed Not Available Not Available Not Available potassium chloride ER 10 mEq tablet,exte nded release Take 1 tablet every day by oral route. 05/12 completed Not Available Not Available Not Available chlorthalid one 25 mg tablet TAKE 1 TABLET BY MOUTH ONCE DAILY 03/20 completed Not Available Not Available Not Available amlodipine 5 mg tablet TAKE 1 TABLET BY MOUTH ONCE DAILY 01/27 completed Not Available Not Available Not Available ciprofloxac in 500 mg tablet 12/26 completed Not Available Not Available Not Available sulfamethox azole 800 mg-trimetho prim 160 mg tablet 08/30 completed Not Available Not Available Not Available aspirin 81 mg tablet,maureen yed release TAKE ONE TABLE EVERY EVENING FOR PREVENTIO N 2023 active Not Available Not Available Not Avai lable tramadol 50 mg tablet 11/09 completed Not Available Not Available Not Available ketorolac 10 mg tablet TAKE 1 TABLET BY MOUTH 4 TIMES DAILY NEEDED 11/11 completed Not Available Not Available Not Available amoxicillin 875 mg tablet Take 1 tablet every 12 hours by oral route for 10 days. 07/29 completed Not Available Not Available Not Available Procardia XL 60 mg tablet,exte nded release Take 1 tablet every day by oral route. 12/26 completed Not Available Not Available Not Available oxycodone-a cetaminophe n 10 mg-325 mg tablet 11/03 completed Not Available Not Available Not Available hydrocodone 7.5 mg-acetamin ophen 325 mg tablet 12/26 completed Not Available Not Available Not Available cephalexin 500 mg capsule 11/03 completed Not Available Not Available Not Available acyclovir 5 % topical ointment APPLY TO THE AFFECTED AREA(S) BY TOPICAL ROUTE EVERY 3 HOURS 6 TIMES PER DAY 11/11 completed Not Available Not Available Not Available fluoxetine 10 mg capsule 12/26 completed Not Available Not Available Not Available lisinopril 20 mg-hydrochl orothiazide 25 mg tablet TAKE ONE TABLET EVERY MORNING FOR BLOOD PRESSURE 2023 active Not Available Not Available Not Avai lable diclofenac sodium 75 mg tablet,maureen yed release Take 1 tablet twice a day by oral route. 11/11 completed [facility] Not Available Not Available Not Available hydrochloro thiazide 25 mg tablet 11/03 completed Not Available Not Available Not Available furosemide 20 mg tablet Take 1 tablet every day by oral route. 01/28 completed Not Available Not Available Not Available norethindro ne acetate 5 mg tablet 11/11 completed Not Available Not Available Not Available ergocalcife rol (vitamin D2) 1,250 mcg (50,000 unit) capsule Take 1 capsule every week by oral route. 06/14 completed Not Available Not Available Not Available Tylenol-Cod eine #3 300 mg-30 mg tablet Take 1 tablet every 6 hours by oral route. 11/03 completed Not Available Not Available Not Available ibuprofen 600 mg tablet 06/14 completed Not Available Not Available Not Available SSD 1 % topical cream APPLY A 1/16 INCH THICK LAYER TO ENTIRE BURN AREA BY TOPICAL ROUTE TWICE DAILY 06/14 completed Not Available Not Available Not Available losartan 100 mg tablet Take 1 tablet every day by oral route. 05/12 completed Not Available Not Available Not Available fluoxetine 20 mg capsule 12/26 completed Not Available Not Available Not Available metformin ER 500 mg tablet,exte nded release 24 hr TAKE 2 TABLETS BY MOUTH ONCE DAILY 03/20 completed Not Available Not Available Not Available naproxen 500 mg tablet Take 1 tablet twice a day by oral route as needed. 11/09 completed Not Available Not Available Not Available amoxicillin 875 mg-potassiu m clavulanate 125 mg tablet TAKE 1 TABLET BY MOUTH EVERY 12 HOURS 11/11 completed Not Available Not Available Not Available Dulcolax (bisacodyl) 5 mg tablet,maureen yed release Take 4 tablets by oral route as directed. 01/13 completed Not Available Not Available Not Available Tylenol Extra Strength 500 mg tablet Take 2 tablets every 4 hours by oral route. 11/03 completed Not Available Not Available Not Available Levora-28 0.15 mg-0.03 mg tablet 11/09 completed Not Available Not Available Not Available azithromyci n 500 mg tablet 12/26 completed Not Available Not Available Not Available Vitamin D3 50 mcg (2,000 unit) capsule Take 1 capsule every day by oral route for 90 days. 2023 active Not Available Not Available Not Avai lable Amethia 0.15 mg-30 mcg (84)/10 mcg(7) tablets,3 month dose pack 11/09 completed Not Available Not Available Not Available Dymista 137 mcg-50 mcg/spray nasal spray 11/09 completed Not Available Not Available Not Available Vitals Date Recorded Body height Body mass index (BMI) Body weight Heart rate Body temperature Oxygen saturation Oxygen saturation in Arterial blood by Pulse oximetry Systolic blood pressure Diastolic blood pressure Provider Name and Address Organization Details Last Updated DateTime 3 167.64 cm 51.3 kg/m2 993615. 37 g 71 /min 98.7 [degF] 98 % 98 % 190 mm[Hg] 94 mm[Hg] Davida Campo FAM [place] [facility] 3 10:03:44 Date Recorded Body height Body mass index (BMI) Body weight Body temperature Heart rate Oxygen saturation Oxygen saturation in Arterial blood by Pulse oximetry Systolic blood pressure Diastolic blood pressure Systolic blood pressure Diastolic blood pressure Provider Name and Address Organization Details Last Updated DateTime 4 167.64 cm 48.7 kg/m2 006325. 9 g 97.9 [degF] 93 /min 97 % 97 % 150 mm[Hg] 91 mm[Hg] 170 mm[Hg] 88 mm[Hg] Zhou Peñaloza MA [facility] 4 15:20:09 Date Recorded Body height Body mass index (BMI) Body weight Oxygen saturation Oxygen saturation in Arterial blood by Pulse oximetry Heart rate Body temperature Systolic blood pressure Diastolic blood pressure Provider Name and Address Organization Details Last Updated DateTime 4 167.64 cm 48.3 kg/m2 199765. 82 g 99 % 99 % 101 /min 98.6 [degF] 132 mm[Hg] 80 mm[Hg] Jojo Obregon MA [facility] 4 17:43:04 Date Recorded Body height Body mass index (BMI) Body weight Oxygen saturation Oxygen saturation in Arterial blood by Pulse oximetry Body temperature Heart rate Systolic blood pressure Diastolic blood pressure Provider Name and Address Organization Details Last Updated DateTime 4 167.64 cm 47.9 kg/m2 523009. 93 g 98 % 98 % 97.9 [degF] 99 /min 126 mm[Hg] 83 mm[Hg] Zhou Peñaloza MA [facility] 4 12:24:41 Date Recorded Body height Body mass index (BMI) Body weight Body temperature Oxygen saturation Oxygen saturation in Arterial blood by Pulse oximetry Heart rate Systolic blood pressure Diastolic blood pressure Provider Name and Address Organization Details Last Updated DateTime 4 167.64 cm 47.5 kg/m2 641666. 16 g 96.6 [degF] 98 % 98 % 92 /min 124 mm[Hg] 88 mm[Hg] Zhou Peñaloza MA [place] - [facility] 14:51:26 Social History Question Answer Notes LastModified by Organizat ion Details LastModified Time Tobacco Smoking Status Former Smoker Zhou Peñaloza MA null, [place] - [facility] 06/14/2024 14:47:39 Do You Have An Advance Directive? No Information not available 11/11/2022 What Is Your Level Of Alcohol Consumption? None Information not available 10/14/2022 Are You Blind Or Do You Have Difficulty Seeing? No Information not available 11/11/2022 What Is Your Level Of Caffeine Consumption? None Information not available 11/11/2022 In The 14 Days Before Symptom Onset, Have You Had Close Contact With A Laboratory-confir med COVID-19 While That Case Was Ill? No Information not available 11/11/2022 In The 14 Days Before Symptom Onset, Have You Had Close Contact With A Person Who Is Under Investigation For COVID-19 While That Person Was Ill? No Information not available 11/11/2022 Have You Been To An Area Known To Be High Risk For COVID-19? No Information not available 11/11/2022 Are You Currently Employed? Yes Information not available 11/11/2022 Are You Deaf Or Do You Have Serious Difficulty Hearing? No Information not available 11/11/2022 What Type Of Diet Are You Following? REGULAR Information not available 10/14/2022 Do You Or Have You Ever Used E-cigarettes Or Vape? Never Used Electronic Cigarettes Information not available 09/03/2019 What Was The Date Of Your Most Recent Tobacco Screening? 06/14/2024 Information not available 06/14/2024 How Many Children Do You Have? 2 Information not available 10/14/2022 What Is Your Current Pack Years? 10packyears Information not available 06/14/2024 What Is Your Relationship Status? Single Information not available 10/14/2022 Do You Use Your Seat Belt Or Car Seat Routinely? Yes Information not available 11/11/2022 Do You Have Smoke And Carbon Monoxide Detectors In Your Home? Yes Information not available 10/14/2022 At What Age Did You Start Smoking Tobacco? 21 Information not available 06/14/2024 Do You Or Have You Ever Used Smokeless Tobacco? Never Used Smokeless Tobacco Information not available 09/03/2019 How Much Tobacco Do You Smoke? No Information not available 09/03/2019 Do You Feel Stressed (tense, Restless, Nervous, Or Anxious, Or Unable To Sleep At Night)? [id number] Information not available 11/11/2022 Do You Use Any Illicit Or Recreational Drugs? No Information not available 11/11/2022 Has Tobacco Cessation Counseling Been Provided? No [email or web address] Information not available 10/14/2022 On What Date Was Tobacco Cessation Counseling Provided? 01/28/2024 Information not available 01/28/2024 How Many Years Have You Smoked Tobacco? 1 Information not available 09/03/2019 Do You Or Have You Ever Used Any Other Forms Of Tobacco Or Nicotine? No Information not available 11/11/2022 Sex: Female Functional Status Question Answer Note LastModified by Organization D etails LastModified Time Are you able to care for yourself? Yes Information n ot available 11/11/2022 Mental Status None recorded. Family History Relationship Description Onset Age of this Age Resolved Age Notes LastModified by Organization Details LastModified Time Mother Hypertensive disorder [email or web address] Not available 09/03 14:58:54 Medical History Condition Response Coronary Artery Disease N Other N Atrial Fibrillation N High Blood Pressure Y Depression N COPD N Blood Clots N Anxiety Disorder N Muscle, Joint, or Bone Problems Y Acid Reflux (GERD) N Cancer N Stroke N ADHD N High Cholesterol N Liver Disease N Schizophrenia N Headaches N Kidney or Bladder Problems N Thyroid Problems N GI Problems N Skin Problems N Anemia N Heart Attack (MD) N Diabetes Y Seizures/Epilepsy N Asthma N Allergies N Hepatitis N Osteoporosis N Heart Failure N Gynecological History Statement/Question Response Flow Light Frequency of Cycle (Q days) 28 On BCP's at Conception? N Menses Monthly N Duration of Flow (days) 3 Age at Menarche 13 Age at First Child 23 LMP Definite Obstetrics History GPAL:G 2 P 2 0 0 2 Type Value Full Term 2 Living 2 Total 2 Immunizations Vaccine Type Date Status Note Provider Nam e and Address Organization Details Recorded Time Tdap 6 completed Not Available [facility] 09/18/2019 02:31:10 COVID-19, mRNA, LNP-S, PF, 30 mcg/0.3 mL dose 1 completed Cathy Acevedo [place] null, [place] [facility] 03/08/2021 12:51:04 COVID-19, mRNA, LNP-S, PF, 30 mcg/0.3 mL dose 1 completed Cathy Aceved[place] [facility] 03/08/2021 12:57:25 COVID-19, mRNA, LNP-S, PF, 30 mcg/0.3 mL dose 2 completed Zhou Pe[place] [facility] 01/14/2024 15:16:16 DT (pediatric) 6 completed Zhou Peñ[place] [facility] 01/14/2024 15:16:16 Pneumococcal conjugate PCV20, polysaccharide [id number] conjugate, adjuvant, PF 3 completed CHITO MERCADO Attn: Accounting[address] [place], [address], [place] [facility] 11/11/2022 15:03:00 MMR 4 completed Jojo Obregon [place] null, [place] [facility] 01/21/2024 18:17:22 Past Encounters Encounter ID Performer Location Encounter Start Date Encounter Closed Date Diagnosis/Indication Diagnosis SNOMED-CT Code Diagnosis ICD10 Code Diagnosis Note [id number] Len Squires MD [address] [address] 07/19/2014 18:58:35 08/02/2014 18:54:24 Upper respiratory infection [id number] antibiotic and OTC cold med and trwat sinuses [id number] Darrin Watkins MD [address] [address] 03/23/2016 10:07:49 03/27/2016 03:47:47 Tuberculosis screening 974785734 Z11.1 Physical examination 588 0005 Z04.9 Obesity 411016980 E66.9 [id number] Lloyd Lagos MD [facility] (Adult/Fa m Med) [address] [place] [address] 9 03/26/2016 10:23:38 03/26/2016 17:54:11 Active or passive immunization 597880392 Z23 [id number] Jennifer Arias MD [facility] ([facility]) [address] [place] [address] 06/04/2016 15:34:17 06/04/2016 16:50:20 Gynecologic examination 80770297 Z01.419 Screening mammography 24 047687 Z12.31 High risk sexual behavior 971906296 Z72.51 Obesity 219794942 E66.9 [id number] Lloyd Lagos MD [facility] (Adult/Fa m Med) [address] [place] [address] 9 12/03/2016 14:57:29 2017 13:16:37 Edema 536613278 R60.9 Pain in lower limb 01053 006 M79.669 Essential hypertension 98821237 I10 [id number] Lloyd Lagos MD [facility] (Adult/Fa m Med) [address] [place] [address] 9 12/12/2016 11:40:23 12/13/2016 11:29:31 Essential hypertension 97763731 I10 Pain in lower limb 99213 006 M79.041 [id number] Lloyd Lagos MD [facility] (Adult/Fa m Med) [address] [place] [address] 9 12/26/2016 16:36:31 12/30/2016 10:54:06 Essential hypertension 10234927 I10 Edema 363845977 R60.9 Pain in le ft lower limb 044916755 M79.576 [id number] Ashley Clayton [facility] (Adult/Fa m Med) [address] [place], [place] [address] 01/28/2017 16:25:47 01/30/2017 09:58:50 Essential hypertension 57827667 I10 Pain in le ft lower limb 029615365 M79.605 Edema 801891361 R60.9 Noncomplia nce with treatment 6085372 Z91.19 Obesity 436927692 E66.9 [id number] Jm Obregon MD [facility] (Adult/Fa m Med) [address] [place] [address] 06/16/2017 18:46:50 06/26/2017 18:27:48 Obesity 885565439 E66.9 Essential hypertension 57863569 I10 [id number] Lloyd Lagos MD [facility] (Adult/Fa m Med) [address] [place] [address] 11/24/2017 11:46:03 12/03/2017 13:04:06 Essential hypertension 37575752 I10 Obesity 436771370 E66.9 Noncomplia nce with medication regimen 628992095 Z91.14 [id number] Lloyd Lagos MD [facility] (Adult/Fa m Med) [address] [place] [address] 02/24/2018 11:42:07 02/27/2018 13:23:33 Essential hypertension 41798098 I10 Noncomplia nce with treatment 9748671 Z91.19 Obesity 349461533 E66.9 Edema 972195381 R60.9 [id number] Ham Jerez MD [address] [address] 01/27/2019 18:03:36 01/29/2019 09:40:37 History and physical examination, pre-employment 646965330 Z02.1 Obesity 609089188 E66.9 [id number] [facility] [address] [place] [address] 09/03/2019 14:24:06 09/09/2019 12:40:39 Gynecologic examination 67138571 Z01.419 Screening mammography 24 135113 Z12.31 High risk sexual behavior 638109312 Z72.51 abstaining > 6 mo with previous sex partner 18 mo. Cardiac arrhythmia 54637 7007 I49.9 Body mass index 40+ - severely obese 944267969 Z68.43 Influenza vaccination declined 181631933 Z28.21 offered & refused [id number] Cecilia Sidhu [facility] ([facility]) [address] [place] [address] 09/13/2019 16:24:44 09/22/2019 11:33:13 Herpes simplex type 2 infection 501373640 B00.9 TC to patient ML on answering machine to view portal test results. [id number] Hermes Mcnamara DO [facility] ([facility]) [address] [place] [address] 03/08/2020 10:44:14 03/10/2020 15:39:14 Essential hypertension 55427405 I10 192\103 discussed severe stress levels in caring foe elderly mom with recent CVA @ 67 y\o. Anastacio. with Dr. Lagos PMD r\t Jade Clayton FP\[employer] currently unavailabl e, for . after verbal discussion with Dr. Taylor patient advised to go to ER r\t c\o chest pains & f\u after ER visit with PMD as hospital f\u exam. Herpes sim plex type 2 infection 818956532 B00.9 TC to patient ML on answering machine to view portal test results. did not receive HSV 2 results until 0 r\t changed phones & new e-mail address update today. rx. sent. Screening mammography 24 970746 Z12.31 [id number] Lloyd Lagos MD [facility] (Adult/Fa m Med) [address] [place] [address] 03/09/2020 11:44:26 03/14/2020 07:06:54 Essential hypertension 04521867 I10 refill meds Obesity 941664237 E66.9 Atypical chest pain 1025 00451 R07.89 seen in the ER at [facility] [id number] Lloyd Lagos MD [facility] (Adult/Fa m Med) [address] [place] [address] 04/11/2020 11:46:13 04/11/2020 15:56:49 Atypical chest pain 184070683 R07.89 seen in the ER at [facility] Essential hypertension 75619078 I10 refill meds Obesity 520567160 E66.9 [id number] Lloyd Lagos MD [facility] (Adult/Fa m Med) [address] [place] [address] 05/12/2020 11:47:20 05/12/2020 14:03:39 Essential hypertension 16946811 I10 refill meds Obesity 619119721 E66.9 [id number] Ashley Forrest, [facility] (Adult/Fa m Med) [address] [place] [address] 08/30/2020 10:17:01 08/31/2020 17:15:07 Essential hypertension 07238705 I10 Edema 218416204 R60.9 Arthritis 8441492 M19.90 [id number] Syed Conley MD [facility] [address] [place] [address] 11/09/2020 09:59:07 11/10/2020 15:49:13 Chondromalacia of bilateral patellas 6161900670 0447334 M22.41 M22.42 Right Osteoarthr itis of knee 714101306 M17.11 M17.12 20 min discussion on Tx options and plan Morbid obesity 917579664 E66.01 15 min discussion bariatric surg vs diet [id number] Syed Conley MD [facility] [address] [place] [address] 11/20/2020 15:24:38 11/21/2020 11:34:10 Chondromalacia of bilateral patellas 7711056176 9172700 M22.41 M22.42 left Osteoarthr itis of knee 314081139 M17.11 M17.12 20 min discussion on Tx options and plan Morbid obesity 713099756 E66.01 15 min discussion bariatric surg vs diet [id number] Davida Bowman MD [facility] [address] [place] [address] 10/14/2022 14:00:10 10/31/2022 10:04:20 Essential hypertension 64552999 I10 128/82 Morbid obesity 180902146 E66.01 Limit fast food, fried food, and fatty food. Focus on fruits and vegetables as snacks, with water, zero-calor ie drinks, and low-fat milk as main beverages. Type 2 hilaria betes mellitus 33635984 E11.9 6.0 A1C today Adult heal th examination 575712072 Z00.00 [id number] STEPHON GRANDECHITO Fernandezroz [address] [place] [address] 11/11/2022 09:42:43 11/15/2022 15:46:47 Essential hypertension 60300694 I10 BP Goal: {{Less than 140/90* Le ss than 150/90}}BP Controlled : {{yes* no} }Healthy Weight: {{4'10= 91-118 lbs 4'11= 94-123 lbs 5'= 97-127 lbs 5'1= 100-131 lbs 5'2= 104-135 5' 3= 107-140 lbs 5'4= 110-144 lbs 5'5= 115-149 lbs 5'6= 118-154 lbs* 5'7= 121-158 lbs 5'8= 125-163 lbs 5'9= 128-168 lbs 5'10= 132-173 lbs 5'11= 136-178 lbs 6'= 140-183 lbs 6'1= 144-188 lbs 6'2= 148-193 lbs 6'3= 152-199 lbs 6'4= 156-204 lbs}}Discu ssed: Low sodium balanced diet, moderate exercise at least 3-4 times per week for an average of 40 minutesNex t Visit: {{1 2 3* 4 5 6 7 8 9 10 11 12} }{{week(s) month(s)* }}-Current regimen maintained ; RFs not required-P t reports symptoms controlled -RFs as appropriat e Type 2 hilaria betes mellitus 40475816 E11.9 Last A1C:{{less than 7.0%* 7-8% 8-9% grea ter than 9%}}Goal A1C less than:{{7.0 %* 8.0%}}C urrent Therapy:{{ metformin* sulfonylu cari TZD SG LT-2 DDP-4 GLP-1 RA long-ac ting insulin ra pid/short- acting insulin}} {{metformi n sulfonyl urea TZD S GLT-2 DDP- 4 GLP-1 RA long-ac ting insulin ra pid/short- acting insulin}} {{metformi n sulfonyl urea TZD S GLT-2 DDP- 4 GLP-1 RA long-ac ting insulin ra pid/short- acting insulin}} {{metformi n sulfonyl urea TZD S GLT-2 DDP- 4 GLP-1 RA long-ac ting insulin ra pid/short- acting insulin}}S tatin:{{ye s no* decl ined due to adverse reaction/a llergy dec lined}}HOLLEY /ARB:{{yes no* no due to negative nephropath y screening contraindi cated decl ined due to adverse reaction/a llergy dec lined}}Dez t Exam:{{com pleted in the past 12 months-neg ative comp leted in the past 12 months-pos itive comp leted in the past 12 months- result unknown du e*}}Nephro fred Screening: {{complete d in the past 12 months- negative c ompleted in the past 12 months- positive d ue*}}Pneum ovax 20:{{UTD D eclined No t given Admi n today#}}Ey e Exam:{{com pleted in the last 12 months- negative c ompleted in the last 12 months- positive c ompleted per patient report due - recommende d annual dilated eye exam*}}Pat ient Education: healthy diet: Yexercise: Yweight loss: Yfoot care: Ycomplicat ions of uncontroll ed diabetes: Ymedicatio n compliance : YNext Visit: {{1 2 3* 4 5 6 7 8 9 10 11 12} } {{week(s) month(s)*} }Pt pre-diabet ic when medication initiated at 1000 mg ER daily; A1C has risen to 6.6 with admin of medication ; Pt has lost 9 lbs since that time; Will control with oral medication , TLCs and f/u in 3 mos for review Body mass index 40+ - severely obese 491752991 Z68.42 -Pt advised of BMI -Pt encouraged to eat a plant-base d diet, minimizing processed foods and portion control -Pt advised on the recommenda tions for routine exercise Patient ne w to provider [id number] 53665 Z76.89 -Initial visit in the [facility] Vitamin D deficiency 347 49669 E55.9 -Pt advised that Vit B12 is deficient; regimen initiated, sent to pharmacy-R echeck after regimen complete during 3 mo f/u visit Administra tion of pneumococcal vaccine 56773983 Z23 -Pt appropriat e for pneumonia vaccine Physical examination 588 0005 Z00.01 -PE complete-A dvised in routine care for current age-Pt stable [id number] CHITO MERCADO [address] [place] [address] 03/20/2023 09:38:27 03/21/2023 16:10:29 Essential hypertension 99986679 I10 BP Goal: {{Less than 140/90* Le ss than 150/90}}BP Controlled : {{yes* no} }Healthy Weight: {{4'10= 91-118 lbs 4'11= 94-123 lbs 5'= 97-127 lbs 5'1= 100-131 lbs 5'2= 104-135 5' 3= 107-140 lbs 5'4= 110-144 lbs 5'5= 115-149 lbs 5'6= 118-154 lbs* 5'7= 121-158 lbs 5'8= 125-163 lbs 5'9= 128-168 lbs 5'10= 132-173 lbs 5'11= 136-178 lbs 6'= 140-183 lbs 6'1= 144-188 lbs 6'2= 148-193 lbs 6'3= 152-199 lbs 6'4= 156-204 lbs}}Discu ssed: Low sodium balanced diet, moderate exercise at least 3-4 times per week for an average of 40 minutesNex t Visit: {{1 2 3* 4 5 6 7 8 9 10 11 12} }{{week(s) month(s)* }}-Current regimen maintained ; RFs not required-P t reports symptoms controlled -RFs as appropriat e 03/20/2023 :-Pt advises that she has failed complete medication regimen r/t I have had so much going and and have been so stressed, dealing with so much.-Disc ussed current V/S and will cont to hold all meds and recheck in 3 mos-Discus sed TLCs during visit; does not require changes in management -Denies associated sx Type 2 hilaria betes mellitus 25995172 E11.9 Last A1C:{{less than 7.0%* 7-8% 8-9% grea ter than 9%}}Goal A1C less than:{{7.0 %* 8.0%}}C urrent Therapy:{{ metformin sulfonylur ea TZD SGL T-2 DDP-4 GLP-1 RA long-ac ting insulin ra pid/short- acting insulin}} {{metformi n sulfonyl urea TZD S GLT-2 DDP- 4 GLP-1 RA long-ac ting insulin ra pid/short- acting insulin}} {{metformi n sulfonyl urea TZD S GLT-2 DDP- 4 GLP-1 RA long-ac ting insulin ra pid/short- acting insulin}} {{metformi n sulfonyl urea TZD S GLT-2 DDP- 4 GLP-1 RA long-ac ting insulin ra pid/short- acting insulin}}S tatin:{{ye s no* decl ined due to adverse reaction/a llergy dec lined}}HOLLEY /ARB:{{yes no* no due to negative nephropath y screening contraindi cated decl ined due to adverse reaction/a llergy dec lined}}Dez t Exam:{{com pleted in the past 12 months-neg ative comp leted in the past 12 months-pos itive comp leted in the past 12 months- result unknown du e*}}Nephro fred Screening: {{complete d in the past 12 months- negative c ompleted in the past 12 months- positive d ue*}}Pneum ovax 20:{{UTD D eclined No t given Admi n today#}}Ey e Exam:{{com pleted in the last 12 months- negative c ompleted in the last 12 months- positive c ompleted per patient report due - recommende d annual dilated eye exam*}}Pat ient Education: healthy diet: Yexercise: Yweight loss: Yfoot care: Ycomplicat ions of uncontroll ed diabetes: Ymedicatio n compliance : YNext Visit: {{1 2 3* 4 5 6 7 8 9 10 11 12} } {{week(s) month(s)*} }Pt pre-diabet ic when medication initiated at 1000 mg ER daily; A1C has risen to 6.6 with admin of medication ; Pt has lost 9 lbs since that time; Will control with oral medication , TLCs and f/u in 3 mos for review 03/20/2023 :-Pt advises that she has failed complete medication regimen r/t I have had so much going and and have been so stressed, dealing with so much.-Disc ussed current V/S and will cont to hold all meds and recheck in 3 mos-Discus sed TLCs during visit; does not require changes in management -Denies associated sx-Resolve DM Body mass index 40+ - severely obese [id number] Z68.42 -Pt advised of BMI -Pt encouraged to eat a plant-base d diet, minimizing processed foods and portion control -Pt advised on the recommenda tions for routine exercise Screening for malignant neoplasm of colon [id number] Z12.11 -Routine Recommende d screening Diabetes resolved 011619 004 Z86.39 Discussed TLCs during visit; does not require changes in management -Pt with prediabete s [id number] Devora Chiu MD [facility] [address] [place] [address] 03/27/2023 13:50:45 03/31/2023 08:02:22 Presbyopia [id number] H52.4 Prediabetes 881067930 R7 3.03 Essential hypertension 91707248 I10 [id number] WILMAR OLMEDO DPM [facility] [address] [place] [address] 03/27/2023 15:25:27 03/28/2023 09:22:19 Diabetic peripheral neuropathy 540865413 E11.42 Patient was educated about the systemic risks of diabetes and importance of proper glucose control, dangers of neuropathy and loss of gift of pain and risk stratifica tion and exam frequency. Patient was educated on high pressure areas including risks and offloading solutions. Reviewed with patient proper foot care instructio ns and daily self-exami nation and monitoring of the feet. Localized edema [id number] 4 R60.0 The patient was educated about the importance of exercise, diet and the need to protect their feet in order to prevent injury or ulceration . Bilateral atherosclerosis of arteries of lower limbs [id number] 0635616 I70.203 The patient was educated about the importance of exercise, diet and the need to protect their feet in order to prevent injury or ulceration Onychomycosis [id number] B35.1 [place] - lesion 816255582 L84 Acquired h ammer toe of right foot [id number] 371484 M20.41 The patient was educated regarding how to mechanical ly stabilize their deformity. The patient was given education about shoe recommenda tions specific for the condition. The patient was educated about custom orthotics and how appropriat e shoes and orthotics can prevent further worsening of the deformity. The patient was educated about how bad shoe habits can worsen the condition. NSAIDS, P.T., injections and other conservati ve treatments were discussed. Both surgical and non surgical treatments were discussed, but conservati ve options were emphasized . Acquired h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
--- OUTSIDE RECORDS SUMMARY | 2025-01-08 22:58 | XMS_ITS | Clinical Summary ---
Author Organization [facility] Address [address] [place] [address] Phone Care Team Providers Care Soa Integration Architect Name Role Phone Provider, None Primary Care Provider Unavailabl e Allergies No known active allergies Medications amLODIPine (NORVASC) 5 MG Tablet Take 5 mg by mouth daily. Active chlorthalidone (HYGROTON) 25 MG Tablet Take 25 mg by mouth daily. Active traMADol (ULTRAM) 50 MG Tablet Take 1 Tab by mouth every 8 hours as needed for Mild or more severe pain. 15 Tab 03/02/2018 Active Social History Tobacco Use Types Packs/Day Years Used Date Smoking Tobacco: Never Smokeless Tobacco: Never Alcohol Use Standard Drinks/Week Comments No 0 (1 standard drink = 0.6 oz pur e alcohol) Comments Unknown Sex and Gender Information Value Date Recorded Sex Assigned at Not on file Legal Sex Female 2:00 PM CDT Gender Identity Not on file Sexual Orientation Not on file Last Filed Vital Signs Vital Sign Reading Time Taken Comments Blood Pressure 142/92 03/02/2018 2:11 PM CDT Pulse 94 03/02/2018 4:09 PM CDT Temperature 37.3 C (99.2 F) 03/02/2018 2:11 PM CDT Respiratory Rate 18 03/02/2018 4:09 PM CDT Oxygen Saturation 98% 03/02/2018 4:09 PM CDT Inhaled Oxygen Concentration - - Weight 140.6 kg (310 lb) 03/02/2018 2:11 PM CDT Height 167.6 cm (5' 6 ) 03/02/2018 2:11 PM CDT Body Mass Index 50.04 03/02/2018 2:11 PM CDT Plan of Treatment Not on file Insurance [facility] Care Teams Soa Integration Architect Relationship Specialty Start Date End Date Provider, None BRADY PCP - General 03/02/18
--- NOTE | 2025-01-08 23:18 | ED_ITS ---
HPI - General Adult General Chief complaint: Unspecified Stated complaint: Right side pain Time Seen by Provider: 01/08/25 23:17 History of Present Illness HPI narrative: This is a 55-year-old female presenting with 1 month of right-sided flank pain. Pain is sharp, nonradiating, worse with movement and comes and goes. She was seen in urgent care 1 week ago was diagnosed with MSK pain. Patient denies fevers chills chest pain difficulty breathing abdominal pain or urinary symptoms. No nausea vomiting or diarrhea. Related Data Allergies Allergy/AdvReac Type Severity Reaction Status Date / Time No Known Allergies Allergy Verified 01/08/25 22:56 Exam Narrative: APPEARANCE: No apparent distress. Head: atraumatic. EYES: EOMI, NOSE: Atraumatic NECK: Trachea midline RESPIRATORY: No increased rate of breathing CTAB CARDIOVASCULAR: RRR, no peripheral edema ABDOMINAL: Non-distended soft nontender no guarding or rebound no CVA tenderness MUSCULOSKELETAl: No obvious deformities NEURO: Alert. Moving 4/4 extremities SKIN:: Warm, dry. Normal color PSYCHIATRIC: Normal affect Course Vital Signs Vital signs: Vital Signs Temperature 98.4 F 01/08/25 23:00 Pulse Rate 95 01/08/25 23:00 Respiratory Rate 16 01/08/25 23:00 Blood Pressure 160/93 H 01/08/25 23:00 Pulse Oximetry 100 01/08/25 23:00 Oxygen Delivery Room Air 01/08/25 23:00 Temperature 98.4 F 01/08/25 23:00 Pulse Rate 92 01/08/25 23:06 Respiratory Rate 16 01/08/25 23:00 Blood Pressure 160/93 H 01/08/25 23:00 Pulse Oximetry 100 01/08/25 23:00 Oxygen Delivery Room Air 01/08/25 23:00 Medical Decision Making [facility] Narrative Medical decision making narrative: -Course: 55-year-old female presenting with right-sided flank pain x1 month. Laboratory studies within normal limits. Urine not indicative of infection. CT abdomen pelvis unremarkable. Based on history and physical presentation most consistent with MSK pain. Patient be discharged on a course of NSAIDs and muscle relaxers. Encouraged follow-up with her primary care physician. Given return precautions for any new or worsening symptoms. -DDX includes but is not limited to: MSK pain, kidney infection, gallbladder disease, kidney stone Vital Signs Vital Signs: Vital Signs Temperature 98.4 F 01/08/25 23:00 Pulse Rate 95 01/08/25 23:00 Respiratory Rate 16 01/08/25 23:00 Blood Pressure 160/93 H 01/08/25 23:00 Pulse Oximetry 100 01/08/25 23:00 Oxygen Delivery Room Air 01/08/25 23:00 Temperature 98.4 F 01/08/25 23:00 Pulse Rate 92 01/08/25 23:06 Respiratory Rate 16 01/08/25 23:00 Blood Pressure 160/93 H 01/08/25 23:00 Pulse Oximetry 100 01/08/25 23:00 Oxygen Delivery Room Air 01/08/25 23:00 Discharge Plan Discharge Clinical Impression: Acute flank pain Patient Disposition: Home Condition: Stable Instructions: Antibiotic Form, Flank Pain (ED) Additional Instructions: You seen emergency department for flank pain. Your workup here was reassuring. We did not find a definitive cause of your pain. I believe it is a muscle strain. Please use Motrin Tylenol Robaxin for your pain. Return develop any new or worsening symptoms. Otherwise follow-up with your primary care doctor Patient Language: Belizean Prescriptions: New acetaminophen 500 mg tablet 1,000 mg PO TID PRN (Reason: orestes) 7 Days Qty: 42 0RF ibuprofen 800 mg tablet 800 mg PO TID PRN (Reason: pain) 7 Days Qty: 21 0RF methocarbamol 750 mg tablet 1,500 mg PO TID Qty: 45 0RF No Action amoxicillin-pot clavulanate 875-125 mg tablet 1 tablet PO Q12H Qty: 14 0RF ibuprofen 800 mg tablet 800 mg PO TID Qty: 10 0RF Follow-up/Referrals: PHYSICIAN,OCCUPATIONAL HEALTH NURSING DIRECTOR [Non-Staff] -
--- NOTE | 2025-01-08 23:40 | PC.NURSE ---
rn at bedside to attempt iv/blood draw. Pt refusing everything at this time. EDP Yassine aware.
[2025-01-09] VITALS (30 sets, daily range): BP systolic 154–155; BP diastolic 96–116; PULSE 60–88; RESP 12–22; O2SAT 97–100
--- OUTSIDE RECORDS SUMMARY | 2025-01-09 00:23 | XMS_ITS | Clinical Summary ---
Author Organization [facility] Address [address] [place] [address] Care Team Providers Care Die Maker Trim Name Role Phone Ashley Clayton NP Primary Care Provider [phone] Allergies No known active allergies Medications promethazine-DM [...] on file Legal Sex Female 5:[address] [employer] Gender Identity Not on file Sexual Orientation [...] CHOICE PRF [place] [address] [facility] Care Teams Die Maker Trim Relationship Specialty Start Date End Date Ashley Clayton NP [address] [place] [address] PCP - General 03/08/20
--- OUTSIDE RECORDS SUMMARY | 2025-01-09 00:23 | XMS_ITS | Clinical Summary ---
Author Organization [facility] Address [address] [place] [address] Phone Care Team Providers Care Multilith Operator Name Role Phone Provider, None Primary Care [...] Plan of Treatment Not on file Insurance [facility] Care Teams Multilith Operator Relationship Specialty Start Date End Date Provider, None BRADY PCP - General 03/02/18
--- OUTSIDE RECORDS SUMMARY | 2025-01-09 00:23 | XMS_ITS | Referral Summary ---
Author Organization [facility] Address [address] [place] [id number] Care Team Providers Care Health Care Liaison Name Role Phone Ashley Clayton NP Primary Care Provider [phone] Allergies No known active allergies Medications promethazine-DM [...] on file Legal Sex Female 5:53 PM MATERIAL CONTROLLER Gender Identity Not on file Sexual Orientation [...] of Treatment Not on file Insurance CHOICE [facility] [place] [facility] Care Teams Health Care Liaison Relationship Specialty Start Date End Date Ashley Clayton, HUSKER OPERATOR [address] [place] [address] PCP - General 03/08/20
--- OUTSIDE RECORDS SUMMARY | 2025-01-09 00:23 | XMS_ITS | Encounter Summary ---
Author Organization [facility] [place] [address] [place] [address] Care Team Providers Care Network Control Operators Supervisor Name Role Phone Unavailable Primary Care Provider Unavailabl e Prior Encounters Date Type Department Care Team Description 09/20/2019 Converted CPS Chart Documents [facility] [address] [place] [address] <No scans attached> 09/20/2019 Converted 13x Documents [facility] [address] [place] [address] <No scans attached> Plan of [...]
--- OUTSIDE RECORDS SUMMARY | 2025-01-09 00:23 | XMS_ITS | Clinical Summary ---
Author Organization [facility] [address] [place] [address] Care Team Providers Care Animation Artist Name Role Phone Unavailable Primary Care Provider [...]
--- OUTSIDE RECORDS SUMMARY | 2025-01-09 00:23 | XMS_ITS | CONTINUITY OF CARE DOCUMENT ---
Author Name leah lynn Address Unknown Organization [facility] Address [address] [facility] [address] [place] [address] Phone [phone] Care Team Providers Care Machine Ironer Name Role Phone Andrae Pope MD Unavailable [phone] Andrae Pope MD Unavailable [phone] [employer] Payer name Policy type / Coverage type [place] red democrat ID [id number] PAY
--- NOTE | 2025-01-09 01:11 | PC.NURSE ---
pt verbalized to this rn that she would get blood but no iv. Pt wants to just do the ct and be done.
[2025-01-09 01:49] LABS: Basophils Percent Auto 0.2 % (0.2-1.2); Eosinophils Absolute Auto 0.2 K/mm3 (0-0.3); Hematocrit 36.7 % (37.0-47.0); Hemoglobin 11.2 g/dL (12.0-15.0); Immature Granulocyte Absolute 0.01 K/mm3 (0.00-0.031); Immature Granulocyte Percent A 0.2 % (0-0.5); Lymphocytes Absolute Auto 2.32 K/mm3 (0.9-3.2); Lymphocytes Percent Auto 45.9 % (18.3-44.2); Mean Corpuscular HGB Conc 30.5 g/dl (32-36); Mean Corpuscular Hemoglobin 26.4 pg (26-34); Mean Corpuscular Volume 86.4 fl (80-100); Mean Platelet Volume 10.5 fl (7.4-10.4); Monocytes Absolute Auto 0.4 K/mm3 (0.1-0.6); Monocytes Percent Auto 7.5 % (2.6-8.5); Neutrophils Absolute Auto 2.2 K/mm3 (1.3-6.7); Neutrophils Percent Auto 43.2 % (45.5-73.1); Platelet Count Result 209 k/mm3 (150-375); Red Blood Count 4.25 M/mm3 (4.2-5.4); Red Cell Distribution Width 13.3 % (11.5-14.5); White Blood Count 5.1 K/mm3 (4.5-10.0)
[2025-01-09 02:04] LABS: Alanine Aminotransferase 15 U/L (6-35); Albumin Level 3.9 g/dL (3.5-5.1); Alkaline Phosphatase 77 U/L (38-126); Anion Gap 6 mmol/L (4-12); Aspartate Amino Transferase 26 U/L (14-36); Bilirubin,Total 0.3 mg/dL (0.2-1.3); Blood Urea Nitrogen 24 mg/dL (7-17); Calcium 9.2 mg/dL (8.4-10.2); Carbon Dioxide 30 mmol/L (22-30); Chloride 107 mmol/L (98-107); Estimated CRCL calculation 115 ml/min; Estimated Glomerular Filt Rate > 60; Glucose 108 mg/dL (65-110); Lipase 80 U/L (23-300); Potassium 3.6 mmol/L (3.4-5.0); Sodium 143 mmol/L (137-145)
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
--- NOTE | 2025-01-09 04:18 | PC.NURSE ---
pt ambulatory with steady gait to restroom. Pt returned to her room and placed back on the monitor.
--- NOTE | 2025-01-09 05:50 | PC.NURSE ---
RN still waiting on ua. Pt was previously ambulated to the bathroom and tech did not collect urine. pt has water and dont have to go. EDP aware and wants to collect ua alexis.
[2025-01-09 07:09] LABS: Add Urine Microscopic? NO; Appearance Urine Clear (Clear); Bilirubin Urine Negative (Negative); Blood Urine Negative (Negative); Color Urine Yellow (Yellow); Glucose Urine UA Negative (Negative); Ketones Urine Negative (Negative); Leukocyte Esterase Ur Negative LEU/UL (Negative); Nitrate Urine Negative (Negative); Protein Urine Negative (Negative); Specific Grav Ur 1.026 (1.001-1.035); Urobilinogen Urine 0.2 mg/dL (<2.0); pH Urine 5.5 (5.0-9.0)
[2025-01-09] MEDS: KETOROLAC 15 MG/ML VIAL (*BKC) IM (07:35)
[2025-01-09] MEDS: ACETAMINOPHEN 500 MG TABLET 1000 MG PO (07:35)
[2025-01-09] MEDS: methocarbamoL 750 MG TABLET 1500 MG PO (07:35)
== END 2025-01-09 07:48 | disposition home or self-care (01) ==
PROVIDERS: Emergency Provider Emergency Medicine
DX: R10.9 Unspecified abdominal pain (principal)
CPT/HCPCS: 36415; 74176; 80053; 81003; 83690; 85025; 96372; 99284; A9270; J1885